=== PATIENT | male | born 1995 | race African-American/Black ===

== ENCOUNTER 2022-11-28 14:03 | Emergency (ER) | payer MEDICAID ==
[~2022-11-28] VITALS: Ht 165.1 cm; Wt 72.6 kg
--- NOTE | 2022-11-28 14:10 | NUR ---
Placed in room 7 . Placed on quality assurance monitor body, blood pressure machine and pulse oximeter. To gown for exam. Side rails up. Report given to JONATHON Escobar
[2022-11-28 14:14] VITALS: BP_SYST 148
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
--- NOTE | 2022-11-28 14:25 | NUR ---
MD DR LOCKHART AT BEDSIDE
[2022-11-28] MEDS ORDERED: HYDROcodone/ACETAMIN 10-325 MG TAB PO ONE (14:45)
--- NOTE | 2022-11-28 15:35 | NUR ---
XRAYS BEING DONE AT BEDSIDE.
[2022-11-28] MEDS ORDERED: TRAM50TA2 PO (15:57)
[2022-11-28] MEDS ORDERED: IBUP-1971 PO (15:57)
[2022-11-28 17:43] VITALS: BP_SYST 135
--- NOTE | 2022-11-28 17:44 | NUR ---
Patient given written and verbal discharge instructions and verbalizes understanding. ER MD DR LOCKHART discussed with patient the results and treatment provided. Patient in stable condition. ID arm band removed. Rx of MOTRIN, TRAMADOL given. Patient educated on pain management and to follow up with PMD. Pain Scale 5/10. Opportunity for questions provided and answered. Medication side effect fact sheet provided.
== END 2022-11-28 17:44 | disposition home or self-care (01) ==
LOC: SED 14:03
DX: S62.316A Displaced fracture of base of fifth metacarpal bone, right hand, initial encounter for closed fracture (principal); J45.909 Unspecified asthma, uncomplicated; Z79.899 Other long term (current) drug therapy; W21.89XA Striking against or struck by other sports equipment, initial encounter; Y93.89 Activity, other specified; Y92.89 Other specified places as the place of occurrence of the external cause; Y99.8 Other external cause status
CPT/HCPCS: 99283

== ENCOUNTER 2023-07-24 20:14 | Emergency (ER) | payer SELFPAY ==
[~2023-07-24] VITALS: Ht 165.1 cm; Wt 72.6 kg
[~2023-07-24 20:14] MED LIST: IBUP-1971 PO; TRAM50TA2 PO
[2023-07-24 21:32] VITALS: BP_SYST 119; PULSE 63; RESP 16; TEMP 98.9; O2SAT 98
[2023-07-24] MEDS ORDERED: PRED20TA PO (22:50)
[2023-07-24] MEDS ORDERED: IBUP-1971 PO (22:50)
[2023-07-24] MEDS ORDERED: ACET-2634 PO (22:50)
[2023-07-24] MEDS ORDERED: TRIA80OI TP (22:50)
== END 2023-07-24 23:22 | disposition home or self-care (01) ==
LOC: SED 20:14
DX: L40.9 Psoriasis, unspecified (principal); L20.9 Atopic dermatitis, unspecified; J45.909 Unspecified asthma, uncomplicated; Z79.899 Other long term (current) drug therapy
CPT/HCPCS: 99281

== ENCOUNTER 2023-08-11 14:18 | Emergency (ER) | payer BC, OTHER ==
[~2023-08-11] VITALS: Ht 165.1 cm; Wt 72.6 kg
[~2023-08-11 14:18] MED LIST changes: +ACET-2634 PO; +PRED20TA PO; +TRIA80OI TP
[2023-08-11 14:20] VITALS: BP_SYST 130; PULSE 98; RESP 20; TEMP 98; O2SAT 97
[2023-08-11 15:25] LABS: BASOPHILS # (AUTO) 0.1 K/uL (0.0-0.2); BASOPHILS % (AUTO) 0.8 % (0.0-2.0); EOSINOPHILS # (AUTO) 0.4 K/uL (0.0-0.4); EOSINOPHILS % (AUTO) 4.1 % (0.0-4.0); HEMATOCRIT 42.2 % (36-54); HEMOGLOBIN 14.7 g/dL (14.0-18.0); LYMPHOCYTES # (AUTO) 2.1 K/uL (1.0-5.5); LYMPHOCYTES % (AUTO) 21.5 % (20.5-51.5); MEAN CORPUSCULAR HEMOGLOBIN 32 pg (27-31); MEAN CORPUSCULAR HGB CONC 35 % (32-36); MEAN CORPUSCULAR VOLUME 93 fL (79.0-98.0); MONOCYTES # (AUTO) 1.1 K/uL (0.0-1.0); MONOCYTES % (AUTO) 11.5 % (1.7-9.3); NEUTROPHILS % (AUTO) 62.1 % (40.0-70.0); PLATELET COUNT (AUTO) 281 K/uL (130-430); RED BLOOD CELL COUNT(AUTO) 4.55 MIL/uL (4.2-6.2); RED CELL DISTRIBUTION WIDTH 12.6 % (9.0-15.0); WHITE BLOOD COUNT (AUTO) 9.6 K/uL (4.8-10.8)
[2023-08-11 15:43] LABS: CALCIUM 9.1 mg/dL (8.4-11.0); CREATININE 0.97 mg/dL (0.55-1.30); POTASSIUM 4.6 mmol/L (3.5-5.1)
[2023-08-11] MEDS: EPINEPHRINE HCL/PF 1 MG/ML AMP IM ONE (15:43)
[2023-08-11] MEDS: HYDROcodone/ACETAMIN 10-325 MG TAB PO ONE (15:45)
[2023-08-11] MEDS: FAMOTIDINE 20 MG TABLET PO ONE (15:45)
[2023-08-11] MEDS: DIPHENHYDRAMINE HCL 50 MG CAPSULE PO ONE (15:45)
[2023-08-11 15:52] LABS: INR 0.9 (0.80-1.20); PROTHROMBIN TIME 9.8 SECS (9.5-12.5)
[2023-08-11] MEDS ORDERED: HYDR-3917 PO (16:10)
[2023-08-11] MEDS ORDERED: PRED20TA PO (16:10)
[2023-08-11] MEDS ORDERED: EPIN0.3P3 IM (16:10)
[2023-08-11 16:17] VITALS: BP_SYST 144; PULSE 83; RESP 20; TEMP 98; O2SAT 97
== END 2023-08-11 16:17 | disposition home or self-care (01) ==
LOC: SED 14:18
DX: L23.9 Allergic contact dermatitis, unspecified cause (principal); J45.909 Unspecified asthma, uncomplicated; R79.1 Abnormal coagulation profile; Z79.899 Other long term (current) drug therapy
CPT/HCPCS: 99284; 80048; 85025; 85610; 85730; 36415; 96372; 83605; 82397; Q0163; J0171

== ENCOUNTER 2023-08-23 16:40 | Emergency (ER) | payer BC ==
[~2023-08-23] VITALS: Ht 165.1 cm; Wt 77.1 kg
[~2023-08-23 16:40] MED LIST changes: +EPIN0.3P3 IM; +HYDR-3917 PO
[2023-08-23 16:59] VITALS: BP_SYST 123; PULSE 88; RESP 18; TEMP 97.1; O2SAT 100
== END 2023-08-23 17:51 | disposition left against medical advice (07) ==
LOC: SED 16:40
DX: R21 Rash and other nonspecific skin eruption (principal); Z53.21 Procedure and treatment not carried out due to patient leaving prior to being seen by health care provider
CPT/HCPCS: 99281

== ENCOUNTER 2023-10-31 09:00 | Emergency (ER) | payer BC, MEDICAID ==
[~2023-10-31] VITALS: Ht 160 cm; Wt 72.6 kg
[2023-10-31 09:07] VITALS: BP_SYST 155; PULSE 78; RESP 18; TEMP 98.3; O2SAT 98
[2023-10-31] MEDS ORDERED: TRIA60LO13 TP (09:18)
[2023-10-31] MEDS: HYDROcodone/ACETAMIN 10-325 MG TAB PO ONE (09:26)
[2023-10-31] MEDS: EPINEPHRINE HCL/PF 1 MG/ML AMP IM ONE (09:26)
== END 2023-10-31 09:48 | disposition home or self-care (01) ==
LOC: SED 09:00
DX: L30.9 Dermatitis, unspecified (principal); J45.909 Unspecified asthma, uncomplicated
CPT/HCPCS: 99283; 96372; J0171